=== PATIENT | female | born 1975 | race Hispanic/Latino ===

== ENCOUNTER 2018-02-11 20:57 | Emergency (ER) | payer SELFPAY ==
[2018-02-11 22:12] LABS: Bilirubin Negative (Negative); Blood, Urine Small (Negative); Clarity Cloudy (Clear); Glucose, Urine (Dipstick) Negative (Negative); Leukocyte Trace (Negative); Nitrite Negative (Negative); Protein, Urine (Dipstick) Negative (Neg-Trace); RBC/HPF 0-3 HPF (0-3); Specific Gravity, Urine 1.031 (1.002-1.036); Urobilinogen 0.2 mg/dL (0.2-1.0); pH, Urine 5.5 (5.0-9.0)
[2018-02-11 22:14] LABS: Bacteria/HPF 2+ HPF (None Seen); Hyaline Casts/LPF NONE SEEN LPF (0-3 Hyaline)
[2018-02-14 20:16] LABS: Chlamydia by PCR Not Detected (NotDetected); GC by PCR Not Detected (NotDetected)
== END 2018-02-11 22:32 | disposition home or self-care (01) ==
LOC: SCSER 20:57
DX: N76.0 Acute vaginitis (principal)
CPT/HCPCS: 81003; 81015; 87480; 87491; 87510; 87591; 87660; 99283

== ENCOUNTER 2018-02-21 18:50 | Emergency (ER) | payer OTHER, SELFPAY ==
[2018-02-21] MEDS ORDERED: Bicillin LA 1.2 MILLION UNITS/2 ML SYRINGE ONE (19:17)
== END 2018-02-21 19:44 | disposition home or self-care (01) ==
LOC: SCSER 18:50
DX: J02.9 Acute pharyngitis, unspecified (principal); Z79.899 Other long term (current) drug therapy
CPT/HCPCS: 96372; J0561

== ENCOUNTER 2018-05-14 23:30 | Emergency (ER) | payer MEDICAID, OTHER | END 2018-05-14 23:55 | disposition home or self-care (01) | LOC: SCSER 23:30 | DX: J03.90 Acute tonsillitis, unspecified (principal) | CPT/HCPCS: 99283 ==

== ENCOUNTER 2018-08-30 18:24 | Emergency (ER) | payer OTHER, SELFPAY ==
[2018-08-30 18:44] LABS: Bilirubin Negative (Negative); Blood, Urine Negative (Negative); Clarity Slightly Cloudy (Clear); Glucose, Urine (Dipstick) Negative (Negative); Leukocyte Negative (Negative); Nitrite Negative (Negative); Protein, Urine (Dipstick) Negative (Neg-Trace); Specific Gravity, Urine 1.029 (1.002-1.036); Urobilinogen 0.2 mg/dL (0.2-1.0)
[2018-08-30 18:45] LABS: Pregnancy Test - Urine (BHCG) Negative (Negative); Pregu Control Background? CLEAR/WHITE (CLR/WHITE); Pregu Control Bar Appear? YES (CONTROL BAR); Specific Gravity 1.029 (1.002-1.036)
== END 2018-08-30 18:55 | disposition home or self-care (01) ==
LOC: SCSER 18:24
DX: N89.8 Other specified noninflammatory disorders of vagina (principal)
CPT/HCPCS: 81003; 81025; 99281

== ENCOUNTER 2018-09-06 11:54 | Emergency (ER) | payer SELFPAY | END 2018-09-06 12:50 | disposition home or self-care (01) | LOC: SCSER 11:54 | DX: L02.416 Cutaneous abscess of left lower limb (principal); R30.0 Dysuria | CPT/HCPCS: 99283 ==

== ENCOUNTER 2019-12-05 09:59 | Emergency (ER) | payer OTHER | END 2019-12-05 11:22 | disposition home or self-care (01) | LOC: ERS 09:59 | DX: B34.9 Viral infection, unspecified (principal); Z20.828 Contact with and (suspected) exposure to other viral communicable diseases | CPT/HCPCS: 87635; 87804; 99283; U0002 ==

== ENCOUNTER 2022-09-27 16:39 | Emergency (ER) | payer OTHER ==
[2022-09-27] MEDS ORDERED: predniSONE 20 MG TAB ONE (17:23)
[2022-09-27] MEDS ORDERED: Ketorolac Tromethamine 30 MG/ML VIAL ONE (17:23)
[2022-09-27 18:26] LABS: SARS-CoV-2 NAA Rapid Test Not Detected (NotDetected)
== END 2022-09-27 18:58 | disposition home or self-care (01) ==
LOC: ERS 16:39
DX: B34.9 Viral infection, unspecified (principal); J06.9 Acute upper respiratory infection, unspecified; Z20.822 Contact with and (suspected) exposure to COVID-19
CPT/HCPCS: 96372; 99283; J1885; J7512